=== PATIENT | female | born 1985 | race American Indian/Alaskan Native ===

== ENCOUNTER 2018-05-29 22:45 | Emergency (ER) | payer SELFPAY ==
[2018-05-29 23:26] LABS: Basophils # (Auto) 0.1 K/mm3 (0.0-0.1); Basophils % (Auto) 0.7 % (0.0-1.8); Eosinophils # (Auto) 0.2 K/mm3 (0.0-0.4); Eosinophils % (Auto) 1.5 % (0.0-4.3); Hematocrit 33.4 % (30.3-42.9); Hemoglobin 12.1 gm/dl (10.1-14.3); Lymphocytes % (Auto) 36.4 % (13.4-35.0); Mean Corpuscular HGB Conc 36 % (30-34); Mean Corpuscular Hemoglobin 29 pg (28-32); Mean Corpuscular Volume 80 fl (79-97); Monocytes # (Auto) 0.7 K/mm3 (0.0-0.8); Monocytes % (Auto) 6.1 % (0.0-7.3); Platelet Count 404 K/mm3 (140-440); Red Blood Count 4.18 M/mm3 (3.65-5.03); Red Cell Distribution Width 14.9 % (13.2-15.2)
[2018-05-30 00:21] LABS: BUN/Creatinine Ratio 17; Blood Urea Nitrogen 10 mg/dL (7-17); Calcium 9.9 mg/dL (8.4-10.2); Hemolysis Index 10
[2018-05-30 01:41] VITALS: BP 147/91
--- NOTE | 2018-05-30 02:00 | Emergency Department Report ---
ED Palpitations HPI - General Chief Complaint: Chest Pain Stated Complaint: AXNIETY Time Seen by Provider: 05/30/18 01:16 Source: patient Mode of arrival: Ambulatory Limitations: No Limitations - History of Present Illness Initial Comments: 32-year-old female with a past medical history of obesity, hypertension, and anxiety/panic attacks presents to the hospital complaining of anxiety attack and elevated blood pressure. 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 She felt the stress building and this evening began to have palpitations. She denies nausea , vomiting, diaphoresis, chest pain, or shortness of breath. She has had similar symptoms secondary to panic attack in the past that she felt that this one was more intense. Since waiting in the ED symptoms have spontaneously resolved and she feels back to normal. Patient states that she has been on 2 blood pressure medications for the past one month and her blood pressure has still remained elevated. She was started on hydrochlorothiazide on the and is concerned that her blood pressure is still elevated. Prior to initiation of hydrochlorothiazide, her BP in the doctor's office was 170s/130s as per office visit paperwork. She denies recent travel, or control pill use, calf tenderness/edema, or history of PE/DVT. - Related Data Home Medications Medication Instructions Recorded Confirmed Last Taken Losartan [Cozaar] 50 mg PO QDAY 05/29/18 05/29/18 05/29/18 NIFEdipine [Nifedipine ER] 30 mg PO DAILY 05/29/18 05/29/18 05/29/18 hydroCHLOROthiazide 12.5 mg PO DAILY 05/29/18 05/29/18 05/29/18 [Hydrochlorothiazide] Allergies Allergy/AdvReac Type Severity Reaction Status Date / Time No Known Allergies Allergy Verified 07/19/14 22:05 ED Review of Systems ROS: Stated complaint: AXNIETY Other details as noted in HPI Comment: All other systems reviewed and negative ED Past Medical Hx - Past Medical History Previous Medical History?: Yes Hx Hypertension: Yes - Surgical History Past Surgical History?: No - Social History Smoking Status: Former Smoker Substance Use Type: Alcohol - Medications Home Medications: Home Medications Medication Instructions Recorded Confirmed Last Taken Type Losartan [Cozaar] 50 mg PO QDAY 05/29/18 05/29/18 05/29/18 History NIFEdipine [Nifedipine ER] 30 mg PO DAILY 05/29/18 05/29/18 05/29/18 History hydroCHLOROthiazide 12.5 mg PO DAILY 05/29/18 05/29/18 05/29/18 History [Hydrochlorothiazide] ED Physical Exam - General Limitations: No Limitations - Other Other exam information: General: No limitations, patient is alert in no acute distress Head exam: Atraumatic, normocephalic Eyes exam: Normal appearance, pupils equal reactive to light, extraocular movements intact ENT: Moist mucous membrane Neck exam: Normal inspection, full range of motion, no meningismus nontender Respiratory exam: Clear to auscultation bilateral, no wheezes, rales, crackles Cardiovascular: Normal rate and rhythm, normal heart sounds Abdomen: Soft, nondistended, and nontender, with normal bowel sounds, no rebound, or guarding Extremity: Full range of motion normal inspection no deformity, tenderness or edema Back: Normal Inspection, full range of motion, no tenderness Neurologic: Alert, oriented x3, cranial nerves intact, no motor or sensory deficit Psychiatric: normal affect, normal mood Skin: Warm, dry, intact ED Course Vital Signs 05/29/18 05/30/18 22:57 01:40 Temperature 98.1 F 97.3 F L Pulse Rate 119 H 83 Respiratory 16 18 Rate Blood Pressure 177/109 Blood Pressure 147/91 [Right] O2 Sat by Pulse 98 100 Oximetry ED Medical Decision Making - Lab Data Result diagrams: 05/29/18 23:12 05/29/18 23:12 Lab Results 05/29/18 05/29/18 05/29/18 Range/Units 23:12 23:12 23:13 WBC 11.0 (4.5-11.0) K/mm3 RBC 4.18 (3.65-5.03) M/mm3 Hgb 12.1 (10.1-14.3) gm/dl Hct 33.4 (30.3-42.9) % MCV 80 (79-97) fl MCH 29 (28-32) pg MCHC 36 H (30-34) % RDW 14.9 (13.2-15.2) % Plt Count 404 (140-440) K/mm3 Lymph % (Auto) 36.4 H (13.4-35.0) % [place] % (Auto) 6.1 (0.0-7.3) % Eos % (Auto) 1.5 (0.0-4.3) % Baso % (Auto) 0.7 (0.0-1.8) % Lymph # 4.0 (1.2-5.4) K/mm3 [place] # 0.7 (0.0-0.8) K/mm3 Eos # 0.2 (0.0-0.4) K/mm3 Baso # 0.1 (0.0-0.1) K/mm3 Seg Neutrophils % 55.3 (40.0-70.0) % Seg Neutrophils # 6.1 (1.8-7.7) K/mm3 Sodium 135 L (137-145) mmol/L Potassium 3.9 (3.6-5.0) mmol/L Chloride 94.1 L (98-107) mmol/L Carbon Dioxide 26 (22-30) mmol/L Anion Gap 19 mmol/L BUN 10 (7-17) mg/dL Creatinine 0.6 L (0.7-1.2) mg/dL Estimated GFR > 60 ml/min BUN/Creatinine Ratio 17 % Glucose 111 H (65-100) mg/dL Calcium 9.9 (8.4-10.2) mg/dL Troponin T < 0.010 (0.00-0.029) ng/mL HCG, Qual Negative (Negative) - EKG Data -: EKG Interpreted by [facility] EKG shows normal: sinus rhythm, axis (qrs 62), QRS complexes (qrsd 99), ST-T waves (no stemi/t inv) - EKG Data When compared to previous EKG there are: no significant change (09/03/14) - Medical Decision Making Patient's symptoms spontaneously improved when she calmed down in the ED. Patient insists that the symptoms are similar to her previous panic attacks. Now that they have resolved her vital signs had improved. Patient denies having any chest pain during the episode and states she only had palpitations. Patient was offered admission to the hospital for stress testing since she has not had a stress test in the past. Patient declined. Overall the patient's low risk for ACS given the unchanged EKG compared to 2015, negative troponin, and lack of chest pain and the fact that this is similar to her panic attacks in the past. Patient will call her doctor tomorrow to schedule more urgent follow-up tomorrow or next week since her original follow-up appointment scheduled for 3 months from now. Patient encouraged to return if symptoms worsen - Differential Diagnosis PE, panic attack, [place], angina, thyroid toxicosis, hypertensive urgency/emerg Critical Care Time: No Critical care attestation.: If time is entered above; I have spent that time in minutes in the direct care of this critically ill patient, excluding procedure time. ED Disposition Clinical Impression: Panic attack, Hypertension Disposition: DC- TO HOME OR SELFCARE Is pt being admited?: No Does the pt Need Aspirin: No Condition: Stable Instructions: Hypertension (ED), Panic Disorder (ED) Additional Instructions: Continue current medication as prescribed. Continue to monitor and documents your blood pressure since recent changes were made to your medication. Follow up with your doctor as soon as possible. You have declined admission for stress testing. Please return if symptoms worsen as indicated by your discharge instructions. Referrals: PRIMARY CARE, [Primary Care Provider] - 2-3 Days Time of Disposition: 02:05
== END 2018-05-30 02:22 | disposition home or self-care (01) ==
LOC: ED 22:45
DX: F41.0 Panic disorder [episodic paroxysmal anxiety] (principal); I10 Essential (primary) hypertension; Z87.891 Personal history of nicotine dependence
CPT/HCPCS: 36415; 80048; 84484; 84703; 85025; 93005; 93010

== ENCOUNTER 2019-08-26 01:29 | Emergency (ER) | payer SELFPAY ==
[2019-08-26] MEDS ORDERED: cloNIDine 0.2 MG TAB ONE (03:23)
[2019-08-26] MEDS: cloNIDine 0.2 MG TAB PO ONE (03:29)
[2019-08-26 04:05] LABS: Basophils # (Auto) 0.1 K/mm3 (0.0-0.1); Basophils % (Auto) 0.5 % (0.0-1.8); Eosinophils # (Auto) 0.1 K/mm3 (0.0-0.4); Eosinophils % (Auto) 1.1 % (0.0-4.3); Hemoglobin 13.2 gm/dl (10.1-14.3); Lymphocytes # (Auto) 3.1 K/mm3 (1.2-5.4); Lymphocytes % (Auto) 25.7 % (13.4-35.0); Monocytes # (Auto) 0.6 K/mm3 (0.0-0.8); Monocytes % (Auto) 4.6 % (0.0-7.3)
[2019-08-26 04:14] LABS: Hematocrit 39.7 % (30.3-42.9); Mean Corpuscular HGB Conc 34 % (30-34); Mean Corpuscular Volume 82 fl (79-97); Platelet Count 420 K/mm3 (140-440); Red Blood Count 4.87 M/mm3 (3.65-5.03); Red Cell Distribution Width 14.6 % (13.2-15.2)
[2019-08-26 04:16] LABS: Bacteria,Urine 2+ /HPF (Negative); Bilirubin,Urine NEG (Negative); Blood,Urine NEG (Negative); Color,Urine Straw (Yellow); HCG Qualitative,Urine Negative (Negative); Urobilinogen,Urine < 2.0 mg/dL (<2.0)
[2019-08-26 04:24] LABS: BUN/Creatinine Ratio 14; Blood Urea Nitrogen 7 mg/dL (7-17); Calcium 9.7 mg/dL (8.4-10.2); Hemolysis Index 11
[2019-08-26 07:27] VITALS: BP 145/95
== END 2019-08-26 11:28 | disposition left against medical advice (07) ==
LOC: ED 01:29
DX: R06.02 Shortness of breath (principal); Z53.21 Procedure and treatment not carried out due to patient leaving prior to being seen by health care provider
CPT/HCPCS: 36415; 80048; 81001; 81025; 85025; 93005; 93010